=== PATIENT | female | born 1975 | race Caucasian/White ===

== ENCOUNTER → 2024-02-14 06:33 | Day surgery (SDC) | payer OTHER, SELFPAY | LOC: GI 06:33 | PROVIDERS: ATTENDING PHYSICIAN Internal Medicine Gastroenterology; FAMILY PHYSICIAN Family Medicine | DX: R19.4 Change in bowel habit (principal); D12.4 Benign neoplasm of descending colon; K52.9 Noninfective gastroenteritis and colitis, unspecified; R14.0 Abdominal distension (gaseous); K90.0 Celiac disease | CPT/HCPCS: 45385; 45380; 43239; 88305 ==